=== PATIENT | female | born 2000 | race Caucasian/White ===

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

== ENCOUNTER 2020-07-29 16:47 | Outpatient (CLI) | payer BC | END 2020-07-29 16:48 | disposition home or self-care (01) | LOC: COV 16:47 | PROVIDERS: ATTEND Family Medicine | DX: U07.1 COVID-19 (principal) ==